=== PATIENT | female | born 1995 | race Caucasian/White ===

== ENCOUNTER 2024-10-04 18:24 | Emergency (ER) | payer SELFPAY ==
[2024-10-04] VITALS (12 sets, daily range): BP systolic 104–119; BP diastolic 62–81; PULSE 70–102; RESP 14–20; TEMP 36.6; O2SAT 97–100; BMI 19.9
--- NOTE | 2024-10-04 18:38 | DI.RAD.S_ITS ---
PROCEDURE: XR CHEST 1V INDICATIONS: Chest Pain TECHNIQUE: One view of the chest was acquired. COMPARISON: None. FINDINGS: Surgical changes and devices: None. Lungs and pleura: Mildly prominent perihilar markings. No pleural effusions or pneumothorax. Mediastinum: Mediastinal contours appear normal. Heart size is normal. Bones and chest wall: No suspicious bony lesions. Overlying soft tissues appear unremarkable. IMPRESSION: Mildly prominent perihilar markings may represent viral infection or reactive airway disease. Dictated by: Pérez Akers M.D. on 10/04/2024 at 19:23 Approved by: Pérez Akers M.D. on 10/04/2024 at 19:24
--- NOTE | 2024-10-04 18:38 | EKG_ITS ---
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
[2024-10-04 18:59] LABS: Add Manual Diff / Slide Review NO; Hematocrit 43.6 % (36-46); Hemoglobin 15.3 g/dL (12.0-16.0); Lymphocytes Absolute Auto 3300 /uL (1100-4500); Mean Corpuscular HGB Conc 35.1 % (30-36); Mean Corpuscular Hemoglobin 29.4 PG (26-34); Mean Corpuscular Volume 83.9 fL (80-100); Platelet Count 386 X10^3/uL (150-400)
[2024-10-04 19:02] LABS: INR 1.1 (0.9-1.3); Prothrombin Time 12.1 SECONDS (9.4-12.5)
[2024-10-04 19:05] LABS: PTT Partial Thromboplastin Tim 22 SECONDS (25.1-36.5)
[2024-10-04 19:06] LABS: Alanine Aminotransferase 19 IU/L (<35); Albumin 4.7 g/dL (3.5-5.0); Albumin Globulin Ratio 1.6 (1.0-2.8); Alkaline Phosphatase 51 U/L (38-126); Blood Urea Nitrogen 7 mg/dL (7-17); Calcium 9.6 mg/dL (8.4-10.2); Carbon Dioxide 22 mmol/L (22-32); Chloride 103 mmol/L (98-107); Creatine Kinase 34 U/L (30-135); Estimated Glomerular Filt Rate > 60 mL/min (>60); Globulin 3.0 g/dL (1.7-4.1); Glucose 128 mg/dL (70-99); HEMOLYSIS < 15 (0-50); Lipase 60 U/L (23-300); Magnesium 1.7 mg/dL (1.6-2.3); Potassium 3.9 mmol/L (3.4-5.1); Sodium 137 mmol/L (137-145); Total Protein 7.7 g/dL (6.3-8.2)
[2024-10-04 19:18] LABS: Troponin I < 0.012 ng/mL (0.01-0.034)
[2024-10-04 19:44] LABS: NT-proBNP (BNP-Adult 18+) < 20 pg/mL (<125)
[2024-10-04 19:54] LABS: Procalcitonin < 0.030 ng/mL (<0.5)
[2024-10-04] MEDS: KETOROLAC 30 MG/ML VIAL IV (20:24)
[2024-10-04] MEDS: SODIUM CHLORIDE 0.9% 1,000 ML 1000 ML IV (20:25)
[2024-10-04] MEDS: ONDANSETRON 4 MG/2 ML INJ IV (20:25)
[2024-10-04 20:46] LABS: Thyroid Stimulating Hormone 0.632 uIU/mL (0.47-4.68)
--- NOTE | 2024-10-04 22:00 | DI.US.S_ITS ---
PROCEDURE: US PELVIC COMPLETE INDICATIONS: PAIN TECHNIQUE: Real-time scanning was performed of the pelvic organs, with image documentation. Additional endovaginal scanning was necessary due to incomplete visualization of the adnexal and endometrial structures by transabdominal scanning. COMPARISON: Located Within [facility], CT, CT ABDOMEN PELVIS W CON, 10/04/2024, 22:58. Located Within [facility], US, US RENAL COMPLETE, 10/04/2024, 22:26. FINDINGS: Uterus: Uterus is anteverted and normal in size at 8.8 x 4.6 x 5 point cm. The myometrium is homogeneous. The endometrium measures 6.6 mm combined thickness. Ovaries: The right ovary measures 6.5 x 5.6 x 6.5cm, with a calculated ovarian volume of 50.8 cc. The left ovary measures 8.1 x 7.0 x 5.8 cm, with a calculated ovarian volume of 172 cc. Simple cyst is present on the right measuring 5.7 by 3.0 x 5.2 cm as well as a simple cyst on the left measuring 2.0 by 2.1 x 2.3 cm. Complex focus of echogenicity is present in the left ovary/adnexa measuring 4.8 x 5.3 x 6.9 cm. There is no apparent increased vascularity. Other: Mild dependent pelvic fluid. IMPRESSION: Bilateral simple ovarian cysts. Complex focus within the left adnexa/ovary somewhat indeterminate on the basis of this exam. While this could represent a dermoid common no classic areas of calcification are identified. Recommend correlation to beta HCG levels to definitively exclude ectopic. Malignancy cannot be definitively excluded although given lack of increased vascularity felt to be less likely. Short interval ultrasound follow-up or MRI with [employer] protocol may be obtained on a nonemergent basis for further evaluation. We strive to produce accurate, complete, and clear reports of imaging services. To assist us in improving patient care, this report was composed using standard report templates and voice recognition software. Therefore, it may contain abnormal punctuation, insertions and/or omissions. Occasional wrong-word or sound-alike substitutions may occur. Though we review the report and make efforts to correct it, we do recommend that the report be read carefully in proper context to recognize any text inaccuracies. Dictated by: Samanta Correia M.D. on 10/04/2024 at 23:34 Approved by: Samanta Correia M.D. on 10/04/2024 at 23:37
[2024-10-04 22:16] LABS: Pregnancy Test Serum,Qual Negative (Negative)
--- NOTE | 2024-10-04 22:16 | DI.US.S_ITS ---
PROCEDURE: US RENAL COMPLETE INDICATIONS: pain TECHNIQUE: Real-time scanning was performed of the kidneys and bladder, with image documentation. COMPARISON: [facility], CT, CT ABDOMEN PELVIS W CON, 10/04/2024, 22:58. [facility], US, US PELVIC COMPLETE, 10/04/2024, 22:26. FINDINGS: Kidneys: Right kidney measures 10.3 cm long; left kidney measures 11.2 cm long. Right renal cortical thickness is 1.4 cm; left renal cortical thickness is 1.5 cm. Renal cortical echotexture is normal. No hydronephrosis or nephrolithiasis. No suspicious solid mass lesions. Bladder: Pre-void bladder volume is 238 mL. Post-void residual is 100 mL. Pre-void images demonstrate no intraluminal masses or stones. On pre-void images, knee there ureteral jets are noted with color Doppler interrogation. (Of note, ureteral jets may not be detectable in up to 25% of cases due to insufficient differences in specific gravity between ureteral and bladder urine). Miscellaneous: Mild visualized scattered fluid. IMPRESSION: No obstruction. Mild postvoid residual. Dictated by: Samanta Correia M.D. on 10/04/2024 at 23:37 Approved by: Samanta Correia M.D. on 10/04/2024 at 23:38
--- NOTE | 2024-10-04 22:16 | DI.CT.S_ITS ---
PROCEDURE: CT ABDOMEN PELVIS W CON INDICATIONS: pain TECHNIQUE: After the administration of intravenous contrast, axial sections acquired from the lung bases to the pubic symphysis. Coronal and sagittal reformats were performed. For radiation dose reduction, the following was used: automated exposure control, adjustment of mA and/or kV according to patient size. COMPARISON: [facility], , US RENAL COMPLETE, 10/04/2024, 22:26. [facility], US, US PELVIC COMPLETE, 10/04/2024, 22:26. FINDINGS: Image quality: Diagnostic. Lower Chest: No significant findings. ABDOMEN: Liver: No solid mass. Liver measures 17.9 cm. Gallbladder: No radiopaque gallstones or wall thickening. Biliary ducts: No biliary dilation. Pancreas: No ductal dilation. Spleen: Size is within normal limits. Adrenal Glands: No adrenal nodules. Kidneys and Ureters: No hydronephrosis. No solid mass. No complex renal cystic lesion which requires follow up. Stomach and Bowel: Normal colonic caliber, without significant wall thickening. Prominent colonic stool. No gross obstruction. Visualized portions of the appendix are. Peritoneum: Mild dependent pelvic fluid. No free air. Ventral Wall: No significant ventral hernia. Abdominal Nodes: No retroperitoneal or mesenteric adenopathy by size criteria. Vessels: Aorta and inferior vena cava are normal in size. PELVIS: Pelvic Organs: Low-attenuation structure measuring measuring approximately 5.0 4.4.7 cm in the right ovary/adnexa. This corresponds to simple cyst identified on ultrasound. Within the right adnexa there is a heterogeneous focus measuring 6.5 x 6.4 cm. Internal areas of increased density are present. This corresponds to left adnexal mass identified on ultrasound without increased vascularity. There is an adjacent low- attenuation structure measuring 2.9 x 2.0 cm corresponding to additional ultrasound finding. Bladder: No bladder wall thickening, accounting for underdistention. Pelvic Nodes: No enlarged lymph nodes. Miscellaneous: No inguinal hernias are seen. Bones: No aggressive osseous abnormality. IMPRESSION: Significant colonic stool without obstruction. Simple right ovarian cyst. Simple left ovarian cyst. Complex mass within the left ovary/adnexa as described above. While significant portions of the mass are low-attenuation, there are focal patchy and confluent areas of increased attenuation identified. Although no distinct areas of calcification are present, overall appearance can be seen with dermoid. In addition, ovarian malignancy cannot be definitively excluded, noting mass demonstrated no stone definitive increased vascularity on ultrasound. However, mass is overall complex and does not appear typical as hemorrhagic cyst. No remote priors are available for comparison. Recommend correlation to beta HCG levels for exclusion of potential ectopic . Otherwise, short interval ultrasound follow-up or MRI with [employer] protocol may be obtained on a nonemergent basis for more definitive evaluation. Dictated by: Samanta Correia M.D. on 10/04/2024 at 23:27 Approved by: Samanta Correia M.D. on 10/04/2024 at 23:34
[2024-10-04 23:18] LABS: Coronavirus NL 63 Not Detected (Not Detect); SARS- CoV-2 Not Detected (Not Detecte)
[2024-10-05] VITALS (9 sets, daily range): BP systolic 110–114; BP diastolic 70–76; PULSE 71–86; RESP 14–22; O2SAT 98–100
[2024-10-05 00:54] LABS: Troponin I < 0.012 ng/mL (0.01-0.034)
[2024-10-05 01:00] LABS: HCG Quantitative /Beta subunit < 2.39 mIU/mL
[2024-10-05 03:02] LABS: Appearance Urine UA CLEAR; Bilirubin Urine UA NEGATIVE (NEGATIVE); Color Urine UA YELLOW; Glucose Urine UA NEGATIVE (Negative); Ketones Urine UA TRACE (NEGATIVE); Leukocyte Esterase Urine UA NEGATIVE (NEGATIVE); Nitrite Urine UA NEGATIVE (Negative); Occult Blood Urine UA NEGATIVE (Negative); Protein Urine UA NEGATIVE (Negative); Specific Gravity Urine UA <=1.005 (1.000-1.035); Urobilinogen Urine UA 0.2 E.U./dL (0.2)
[2024-10-05 03:05] LABS: pH Urine UA 7.5 (4.5-8.0)
[2024-10-05 03:21] LABS: Culture Indicated Urine Cult Not Indicated
[2024-10-05] MEDS: HYDROCODONE/ACET 5/325 PREPACK 1 BOTTLE MISC (03:24)
[2024-10-05] MEDS: HYDROCODONE/ACET 5/325 TABLET 1 TAB PO (03:25)
--- NOTE | 2024-10-05 05:30 | ED_ITS ---
HPI - Syncope General Chief Complaint: Syncope Stated Complaint: collapsed, bladder/lower abd pain Time Seen by Provider: 10/04/24 19:01 Source: patient Mode of arrival: Wheelchair Limitations: no limitations History of Present Illness HPI narrative: Pleasant 29-year-old female with no significant past medical history comes to the ER because of experiencing sudden onset of extreme abdominal pain while she was at a hair appointment. She reports that she was in extreme pain and thought she might be having a bowel movement so she went to the bathroom at the hair salon and then her vision started to go away and she felt very lightheaded so she sat down on the ground and then laid down and the white of her vision started to resolve after that point. She resolves every moment of what happened and is 100% sure that she did not lose consciousness fully. Since that time she has been diaphoretic and having significant abdominal pain which is radiating up into her chest. The pain is primarily epigastric and right upper quadrant. She denies any recent fever, chills, sweats, illness, ill contacts. She denies any vomiting or diarrhea. She she denies any changes in vision hearing speech or swallowing or any numbness tingling or weakness of any part of the body. She is extremely uncomfortable and has no other concerns or complaints at this time. Related Data Previous Rx's ?Medication ?Instructions ?Recorded hydrocodone 5 mg-acetaminophen 325 1 tab PO Q4H PRN pa in #18 tabs 10/05/24 mg tablet ibuprofen 800 mg tablet 800 mg PO Q8H PRN pain #30 t abs 10/05/24 Allergies Allergy/AdvReac Type Severity Reaction Status Date / Time doxycycline Allergy Verified 10/04/24 18:30 Patient History Social History Smoking Status: Never smoker Smoking Status: Never smoker Exam Initial Vital Signs Initial Vital Signs: Vital Signs Temperature 98 F 10/04/24 18:28 Pulse Rate 102 H 10/04/24 18:28 Respiratory Rate 20 10/04/24 18:28 Blood Pressure 115/81 10/04/24 18:28 Pulse Oximetry 100 10/04/24 18:28 Oxygen Delivery Method Room Air 10/04/24 18:28 Const General: cooperative, No comfortable, acute distress, in distress, diaphoretic and ill appearing [facility] Head: normal to inspection, normocephalic, atraumatic, No cyanosis of lips/distal nose, No Rodas's sign and No raccoon eyes Ears: TM's normal bilaterally Face and sinus: normal facial exam Mouth: oral mucosae normal Eyes General: Yes appearance normal, both eyes and all related structures Pupils: PERRL EOM: EOM intact bilaterally Neck Neck: normal visual inspection, full ROM, No no meningeal signs, No positive Brudzinski's sign, No positive Kernig's sign and No tender Carotids: no bruits Resp Effort & Inspection: normal respiratory effort Auscultation: clear to auscultation bilaterally Cardio Rate: regular rate Rhythm: regular rhythm Heart Sounds: S1 normal and S2 normal GI Inspection: normal to inspection and non-distended Palpation: soft, No firm, No guarding and tender Auscultation: normal bowel sounds General: No CVA tenderness Back/Spine/Pelvis Back: normal to inspection and No back tenderness Skin General: no rashes or lesions noted Neuro General: patient alert, patient awake, patient oriented x3, gait normal, tone normal, moves all extremities, normal light touch, pain and propioception, no focal motor deficits and CN's II-XI intact bilaterally Cognition: normal cognition Sensory Exam: no sensory deficits noted Extrem General: normal to inspection, no clubbing, cyanosis or edema, no pedal edema and no calf tenderness Psych Mental Status: mental status grossly normal Course Course Course Narrative: Patient seen and examined by myself upon being roomed in the ER. She was diaphoretic and in extreme distress when I 1st saw her. This did improve with some pain medication. I was extremely concerned for cardiac and abdominal causes as she was having active abdominal pain along with her presyncopal episode that she had prior to arrival. However, her entire workup was negative except for some abnormal findings on pelvic ultrasound of a nondescript mass that he is unable to determine what exactly it is. She also had some large ovarian cysts bilaterally. I suspect that 1 major possibility is that she had a ruptured ovarian cyst today corresponds with her menstrual cycle of having her last period about 2 weeks ago. She remained hemodynamically stable throughout her stay in the ER. I advised her that the mass that was seen we will need follow up imaging with ultrasound or MRI in the near future and I advised her to discuss this with her PCP and or senior engineering specialist. Otherwise, I advised her to return to the ER for any change or worsening in her condition especially worsening or [id number] pain, chest pain, shortness of breath, sudden diaphoresis, changes in vision hearing speech swallowing or numbness tingling or weakness of any part of the body, lightheadedness, dizziness, fevers, chills, nausea vomiting or diarrhea, sweats or any other concerns. The patient and her family were in agreement with this plan. Orders Ordered: ED Orders 10/04/24 22:00 US pelvic complete Stat 10/04/24 22:16 CT abdomen pelvis w con Stat US renal complete Stat 10/04/24 22:20 Respiratory Panel (Film Array) Stat 10/05/24 00:20 Beta HCG, Quant [HCG Quantitative /Beta subunit] Stat Trop I [Troponin I] Stat 10/05/24 00:49 Urinalysis and Microscopic Stat Discontinued Medications Hydrocodone Bitart/Acetaminophen (Hydrocodone/Acet 5/325 Prepack) 1 bottle MISC DIRECTED ONE Stop: 10/05/24 03:13 Last Admin: 10/05/24 03:24 Dose: 1 bottle Documented By: Hydrocodone Bitart/Acetaminophen (Hydrocodone/Acet 5/325 Tablet) 1 tab PO NOW ONE Stop: 10/05/24 03:13 Last Admin: 10/05/24 03:25 Dose: 1 tab Documented By: Aspirin (Aspirin 81 Mg Chew Tab) 324 mg PO NOW ONE Stop: 10/04/24 18:38 Last Admin: 10/04/24 20:32 Dose: Not Given Documented By: SB Diazepam (Diazepam 10 Mg/2 Ml Syringe) 5 mg IV NOW ONE Stop: 10/04/24 19:24 Last Admin: 10/04/24 20:24 Dose: 5 mg Documented By: SB Diazepam (Diazepam 10 Mg/2 Ml Syringe) 5 mg IV NOW ONE Stop: 10/05/24 03:13 Last Admin: 10/05/24 03:28 Dose: 5 mg Documented By: AB Sodium Chloride (Normal Saline 0.9%) 1,000 mls @ 1,000 mls/hr IV BOLUS ONE Stop: 10/04/24 20:07 Last Infusion: 10/04/24 22:54 Dose: Infused Documented By: Admin: 10/04/24 20:25 Dose: 1,000 mls/hr Documented By: SB Ketorolac Tromethamine (Ketorolac 30 Mg/Ml Vial) 30 mg IV NOW ONE Stop: 10/04/24 19:10 Last Admin: 10/04/24 20:24 Dose: 30 mg Documented By: SB Ondansetron HCl (Ondansetron 4 Mg/2 Ml Inj) 4 mg IV NOW ONE Stop: 10/04/24 19:10 Last Admin: 10/04/24 20:25 Dose: 4 mg Documented By: SB Vital Signs Vital signs: Vital Signs - 8 hr 10/04/24 22:00 10/04/24 22:30 10/04/24 22:30 Pulse Rate 88 72 Respiratory Rate 19 20 Blood Pressure 113/62 111/68 Pulse Oximetry 100 99 Oxygen Delivery Method Room Air 10/04/24 23:07 10/04/24 23:07 10/04/24 23:30 Pulse Rate 87 Respiratory Rate 20 Blood Pressure 119/70 119/70 Pulse Oximetry 97 Oxygen Delivery Method 10/04/24 23:30 10/05/24 00:00 10/05/24 00:00 Pulse Rate 80 71 Respiratory Rate 16 16 Blood Pressure 114/70 Pulse Oximetry 100 99 Oxygen Delivery Method 10/05/24 00:30 10/05/24 01:00 10/05/24 01:30 Pulse Rate 74 71 86 Respiratory Rate 14 22 16 Blood Pressure Pulse Oximetry 99 98 99 Oxygen Delivery Method 10/05/24 02:00 10/05/24 02:30 10/05/24 03:00 Pulse Rate 84 74 77 Respiratory Rate 18 19 21 Blood Pressure Pulse Oximetry 98 100 99 Oxygen Delivery Method 10/05/24 03:30 10/05/24 03:32 Pulse Rate 73 Respiratory Rate 18 Blood Pressure 110/76 Pulse Oximetry 98 Oxygen Delivery Method MDM - Syncope Differential Diagnosis Differential diagnosis: Likely syncope due to orthostatic hypotension, vasovagal syncope, complete atrioventricular block, subarachnoid hemorrhage, pulmonary embolism and dehydration Lab Data 10/04/24 18:47 10/04/24 18:47 Labs: Lab Results 10/04/24 10/04/24 10/04/24 Range/Units 18:34 18:47 18:47 WBC 8.4 (4.5-11.0) X10^3/uL RBC 5.19 (4.0-5.2) X10^6/uL Hgb 15.3 (12.0-16.0) g/dL Hct 43.6 (36-46) % MCV 83.9 (80-100) fL MCH 29.4 (26-34) PG MCHC 35.1 (30-36) % RDW 13.2 (11.6-14.8) % Plt Count 386 (150-400) X10^3/uL Neut % (Auto) 51.2 (50-75) % Lymph % (Auto) 39.7 (25-40) % Door % (Auto) 6.9 (3-14) % Eos % (Auto) 1.5 L (2-4) % Baso % (Auto) 0.7 (0-2) % Neut # (Auto) 4300 (5931-4957) /uL Lymph # (Auto) 3300 (0949-8699) /uL Door # (Auto) 600 (0-900) /uL Eos # (Auto) 100 (0-450) /uL Baso # (Auto) 100 (0-100) /uL PT 12.1 (9.4-12.5) SECONDS INR 1.1 (0.9-1.3) APTT 22 L (25.1-36.5) SECONDS D-Dimer 217 (<500) ng/ml Sodium 137 (137-145) mmol/L Potassium 3.9 (3.4-5.1) mmol/L Chloride 103 (98-107) mmol/L Carbon Dioxide 22 (22-32) mmol/L BUN 7 (7-17) mg/dL Creatinine 0.74 (0.52-1.04) mg/dL Estimated GFR > 60 (>60) mL/min BUN/Creatinine Ratio 9.5 (6-22) Glucose 128 H (70-99) mg/dL POC Whole Bld Glucose 111 H (70-99) mg/dL Calcium 9.6 (8.4-10.2) mg/dL Magnesium 1.7 (1.6-2.3) mg/dL Total Bilirubin 0.8 (0.2-1.3) mg/dL AST 28 (14-36) IU/L ALT 19 (<35) IU/L Alkaline Phosphatase 51 (38-126) U/L Total Creatine Kinase 34 (30-135) U/L Troponin I < 0.012 (0.01-0.034) ng/mL NT-Pro-B Natriuret Pep < 20 Cancelled (<125) pg/mL Total Protein 7.7 (6.3-8.2) g/dL Albumin 4.7 (3.5-5.0) g/dL Globulin 3.0 (1.7-4.1) g/dL Albumin/Globulin Ratio 1.6 (1.0-2.8) Lipase 60 (23-300) U/L Procalcitonin < 0.030 (<0.5) ng/mL TSH 0.632 (0.47-4.68) uIU/mL HCG, Quant mIU/mL Serum , Qual Negative (Negative) Urine Color Urine Appearance Urine pH (4.5-8.0) Ur Specific [place] (1.000-1.035) Urine Protein (Negative) Urine Glucose (UA) (Negative) g/dL Urine Ketones (NEGATIVE) Urine Occult Blood (Negative) Urine Nitrate (Negative) Urine Bilirubin (NEGATIVE) Urine Urobilinogen (0.2) E.U./dL Ur Leukocyte Esterase (NEGATIVE) Urine RBC (0-5/HPF) Urine WBC (0-5/HPF) Ur Squamous Epith Cells (0-5/HPF) Urine Bacteria (None) Ur Culture Indicated? Vol Urine Centrifuged Chlamy pneumoniae PCR (Not Detect) Adenovirus (PCR) (Not Detect) B. pertussis DNA (PCR) (Not Detect) B.parapertussis DNA PCR (Not Detecte) Coronavirus OC43 (PCR) (Not Detect) Coronavirus HKU1 (PCR) (Not Detect) Coronavirus 229E (PCR) (Not Detect) SARS-CoV-2 (PCR) (Not Detecte) Coronavirus NL63 (PCR) (Not Detect) Human Metapneumovir PCR (Not Detect) Influenza Type A (PCR) (Not Detect) Influenza Type B (PCR) (Not Detect) M. pneumoniae (PCR) (Not Detect) Parainfluenza 1 (PCR) (Not Detect) Parainfluenza 2 (PCR) (Not Detect) Parainfluenza 3 (PCR) (Not Detect) Parainfluenza 4 (PCR) (Not Detect) RSV (PCR) (Not Detect) Entero/Rhino (PCR) (Not Detect) 10/04/24 10/05/24 10/05/24 Range/Units 22:20 00:20 00:49 WBC (4.5-11.0) X10^3/uL RBC (4.0-5.2) X10^6/uL Hgb (12.0-16.0) g/dL Hct (36-46) % MCV (80-100) fL MCH (26-34) PG MCHC (30-36) % RDW (11.6-14.8) % Plt Count (150-400) X10^3/uL Neut % (Auto) (50-75) % Lymph % (Auto) (25-40) % Door % (Auto) (3-14) % Eos % (Auto) (2-4) % Baso % (Auto) (0-2) % Neut # (Auto) (2073-3540) /uL Lymph # (Auto) (5484-0933) /uL Door # (Auto) (0-900) /uL Eos # (Auto) (0-450) /uL Baso # (Auto) (0-100) /uL PT (9.4-12.5) SECONDS INR (0.9-1.3) APTT (25.1-36.5) SECONDS D-Dimer (<500) ng/ml Sodium (137-145) mmol/L Potassium (3.4-5.1) mmol/L Chloride (98-107) mmol/L Carbon Dioxide (22-32) mmol/L BUN (7-17) mg/dL Creatinine (0.52-1.04) mg/dL Estimated GFR (>60) mL/min BUN/Creatinine Ratio (6-22) Glucose (70-99) mg/dL POC Whole Bld Glucose (70-99) mg/dL Calcium (8.4-10.2) mg/dL Magnesium (1.6-2.3) mg/dL Total Bilirubin (0.2-1.3) mg/dL AST (14-36) IU/L ALT (<35) IU/L Alkaline Phosphatase (38-126) U/L Total Creatine Kinase (30-135) U/L Troponin I < 0.012 (0.01-0.034) ng/mL NT-Pro-B Natriuret Pep (<125) pg/mL Total Protein (6.3-8.2) g/dL Albumin (3.5-5.0) g/dL Globulin (1.7-4.1) g/dL Albumin/Globulin Ratio (1.0-2.8) Lipase (23-300) U/L Procalcitonin (<0.5) ng/mL TSH (0.47-4.68) uIU/mL HCG, Quant < 2.39 mIU/mL Serum , Qual (Negative) Urine Color Yellow Urine Appearance Clear Urine pH 7.5 (4.5-8.0) Ur Specific [place] <=1.005 (1.000-1.035) Urine Protein Negative (Negative) Urine Glucose (UA) Negative (Negative) g/dL Urine Ketones Trace H (NEGATIVE) Urine Occult Blood Negative (Negative) Urine Nitrate Negative (Negative) Urine Bilirubin Negative (NEGATIVE) Urine Urobilinogen 0.2 (0.2) E.U./dL Ur Leukocyte Esterase Negative (NEGATIVE) Urine RBC None seen (0-5/HPF) Urine WBC None seen (0-5/HPF) Ur Squamous Epith Cells 0-1 /hpf (0-5/HPF) Urine Bacteria None seen (None) Ur Culture Indicated? Cult not indicated Vol Urine Centrifuged 10ml (spun) Chlamy pneumoniae PCR Not detected (Not Detect) Adenovirus (PCR) Not detected (Not Detect) B. pertussis DNA (PCR) Not detected (Not Detect) B.parapertussis DNA PCR Not detected (Not Detecte) Coronavirus OC43 (PCR) Not detected (Not Detect) Coronavirus HKU1 (PCR) Not detected (Not Detect) Coronavirus 229E (PCR) Not detected (Not Detect) SARS-CoV-2 (PCR) Not detected (Not Detecte) Coronavirus NL63 (PCR) Not detected (Not Detect) Human Metapneumovir PCR Not detected (Not Detect) Influenza Type A (PCR) Not detected (Not Detect) Influenza Type B (PCR) Not detected (Not Detect) M. pneumoniae (PCR) Not detected (Not Detect) Parainfluenza 1 (PCR) Not detected (Not Detect) Parainfluenza 2 (PCR) Not detected (Not Detect) Parainfluenza 3 (PCR) Not detected (Not Detect) Parainfluenza 4 (PCR) Not detected (Not Detect) RSV (PCR) Not detected (Not Detect) Entero/Rhino (PCR) Not detected (Not Detect) Point of Care Testing Test Results Negative Urine Dip Bedside Urine Glucose Negative Bedside Urine Bilirubin - Negative Bedside Urine Ketone +/- 5 Urine Specific [place] 1.005 Bedside Urine Occult Blood - Negative Bedside Urine pH 7.5 Bedside Urine Protein - Negative Bedside Urine Urobilinogen - Negative Bedside Urine Nitrite - Negative Bedside Urine Leukocytes - Negative Esterase ECG Data Interpretation: Normal sinus rhythm. Rate 76. No acute ST or T-wave changes. Discharge Plan Departure Patient Disposition: Home Clinical Impression: Abdominal pain Qualifiers: Abdominal location: upper abdomen, unspecified Qualified Code(s): R10.10 - Upper abdominal pain, unspecified Instructions: DI for Ovarian Cyst Activity Restrictions/Additional Instructions: If there is any change or worsening in her condition such as out of control or worsening pain, fever, chills, sweats, nausea, vomiting, diarrhea, chest pain, shortness of breath, lightheadedness, dizziness, sudden sweatiness, passing out then please call 911 or return to the ER right away. Otherwise, please follow up with your PCP and your senior engineering specialist as soon as possible. There was a mass seen on the left side of your pelvis that will need ultrasound or MRI follow up which needs to be arranged by your PCP or your senior engineering specialist. Prescriptions: New hydrocodone-acetaminophen 5-325 mg tablet 1 tab PO Q4H PRN (Reason: pain) Qty: 18 0RF ibuprofen 800 mg tablet 800 mg PO Q8H PRN (Reason: pain) Qty: 30 0RF Stand Alone Forms: Patient Portal/API
== END 2024-10-05 03:36 | disposition home or self-care (01) ==
PROVIDERS: Emergency Medicine; Emergency Provider Emergency Medicine
DX: R10.10 Upper abdominal pain, unspecified (principal)
CPT/HCPCS: 36415; 71045; 74177; 76770; 76830; 76856; 80053; 81001; 81003; 81025; 82550; 82962; 83690; 83735; 83880; 84145; 84443; 84484; 84702; 84703; 85025; 85379; 85610; 85730; 87040; 87633; 93005; 93975; 96361; 96374; 96375; 96376; 99284; J1885; J2405; J3360; Q9967